=== PATIENT | female | born 1965 | race Caucasian/White ===

== ENCOUNTER 2023-09-19 10:44 | Outpatient (OUT) | payer OTHER, SELFPAY ==
--- NOTE | 2023-09-19 10:46 | MM_ITS ---
Patient Name: TONY HENSLEY MR#: [id number] : 1965 Exam Date: 09/19/2023 Ordering Doctor: DR MINDY SANON RADIOLOGY REPORT PROCEDURE: MM TOMOSYNTHESIS SCREENING BI COMPARISON: MG MAMM SCREEN 3D ERIN CAD, 08/29/2022. INDICATIONS: screening Calculator Name NCI Breast Cancer Risk Assessment Tool 5 Year Breast Cancer Risk Not Reported. Lifetime Breast Cancer Risk Not Reported. Personal Breast Cancer No Personal Ovarian Cancer No Treatments None Family Cancers None LOCATION: [facility] BREAST COMPOSITION: Almost entirely fatty. FINDINGS: DIAGNOSTIC CATEGORY 1--NEGATIVE. RIGHT BREAST: No significant suspicious finding. No significant change has occurred. LEFT BREAST: No significant suspicious finding. No significant change has occurred. RECOMMENDATIONS: ROUTINE MAMMOGRAM AND CLINICAL EVALUATION IN 12 MONTHS. PLEASE NOTE: A NORMAL MAMMOGRAM DOES NOT EXCLUDE THE POSSIBILITY OF BREAST CANCER. A CLINICALLY SUSPICIOUS PALPABLE LUMP SHOULD BE BIOPSIED. Dictated by: Chi Rothman M.D. on 10/04/2023 at 11:46 Approved by: Chi Rothman M.D. on 10/04/2023 at 11:48
== END 2023-09-19 10:45 | disposition home or self-care (01) ==
LOC: MAMMO 10:44
PROVIDERS: PCP Family Medicine; Visit Provider Family Medicine
DX: Z12.31 Encounter for screening mammogram for malignant neoplasm of breast (principal)
CPT/HCPCS: 77063; 77067